=== PATIENT | female | born 1985 | race Caucasian/White ===

== ENCOUNTER 2017-01-02 16:35 | Inpatient (IN) | payer MEDICAID ==
--- NOTE | 2017-01-02 19:26 | ED PDOC ---
HPI: Psych/Substance Abuse Time Seen by Provider: 01/02/17 18:05 Chief Complaint (Nursing): Psychiatric Evaluation Chief Complaint (Provider): Psychiatric Evaluation History Per: Patient History/Exam Limitations: no limitations Suicide/Self Injury Attempted (Context): None Additional Complaint(s): 18:05 Selena Love is a 31 year old female from [place] that presents to the ED with a chief complaint of hearing derogatory voices in her head. Patient states that she has had schizoaffective disorder for many years, and is currently on medication for it. She visits a psychiatrist, with her last visit being two weeks ago. Patient also reports that she has always heard voices in her head, but that over the course of the last week and a half, the voices have become "mean," and that she has been hearing voices more than she normally does. Patient states that she does not want to hurt others or herself, and wanted to go to the hospital last week, but did not go because she wanted to visit her children this week. When visiting her children today in [place], she stated that she "could not take [the voices] anymore," which prompted her to come to the ED. PMD: Katie- in [place] Past Medical History Reviewed: Historical Data, Nursing Documentation, Vital Signs Vital Signs: Last Vital Signs Temp 98.5 F 01/02/17 16:48 Pulse 70 01/02/17 16:48 Resp 20 01/02/17 16:48 BP 125/90 01/02/17 16:48 Pulse Ox 98 01/02/17 16:48 - Medical History PMH: Asthma, Bipolar Disorder, Depression, Schizophrenia, Chronic Pain (Back pain due to pinched nerves) Denies: Chronic Kidney Disease - Surgical History Surgical History: (x 2) - Family History Family History: States: Unknown Family Hx - Home Medications Home Medications: Ambulatory Orders Medication Instructions Recorded RX: traMADol [Ultram] 50 mg PO Q6H 01/16/16 RX: Gabapentin [Neurontin] 400 mg PO HS #30 cap 01/25/16 RX: cloZAPine [Clozaril] 50 mg PO DAILY #15 tab 01/25/16 RX: cloZAPine [Clozaril] 50 mg PO HS #15 tab 01/25/16 RX: cloZAPine [Clozaril] 100 mg PO HS #15 tab 04/15/16 Metaxalone [Skelaxin] 800 mg PO TID PRN #20 tablet 05/07/16 - Allergies Allergies/Adverse Reactions: Allergies Allergy/AdvReac Type Severity Reaction Status Date / Time Sulfa (Sulfonamide Allergy RASH Verified 01/02/17 16:44 Antibiotics) tramadol Allergy RASH Verified 01/02/17 16:44 Review of Systems Psych: Positive for: Other (hearing derogatory voices in her head). Negative for: Suicidal ideation (no SI or HI) Physical Exam - Reviewed Nursing Documentation Reviewed: Yes Vital Signs Reviewed: Yes - Physical Exam Appears: Positive for: Non-toxic, No Acute Distress Head Exam: Positive for: ATRAUMATIC, NORMOCEPHALIC Skin: Positive for: Normal Color, Warm Eye Exam: Positive for: Normal appearance, EOMI ENT: Positive for: Normal ENT Inspection Cardiovascular/Chest: Positive for: Regular Rate, Rhythm. Negative for: Murmur Respiratory: Positive for: Normal Breath Sounds. Negative for: Respiratory Distress Gastrointestinal/Abdominal: Positive for: Soft. Negative for: Tenderness Neurologic/Psych: Positive for: Alert, Oriented, Other (racing, tangential thoughts) - Laboratory Results Result Diagrams: 01/02/17 19:45 - ECG O2 Sat by Pulse Oximetry: 98 (RA) Pulse Ox Interpretation: Normal Medical Decision Making Medical Decision Makin:50 Initial Impression: Psychiatric Evaluation Initial Plan: * Urine Drug Screen * Urine * Crisis Evaluation * EKG * Acetaminophen * Alcohol Serum * CMP * CBC * Drug Screen * Salicylate * Reevaluation 19:42 Patient will be signed out pending medical clearance Clinical Impression: Schizoaffective Disorder Bipolar Type- Dr. Almaraz. Scribe Attestation: Documented by Laura Costa, acting as a scribe for Edgardo Broussard PA-C. Provider Scribe Attestation: All medical record entries made by the Scribe were at my direction and personally dictated by me. I have reviewed the chart and agree that the record accurately reflects my personal performance of the history, physical exam, medical decision making, and the department course for this patient. I have also personally directed, reviewed, and agree with the discharge instructions and disposition. Disposition - Clinical Impression Clinical Impression: Schizoaffective disorder - Patient ED Disposition Is Patient to be Admitted: Transfer of Care Discussed With DrAl: Frederick Almaraz Counseled Patient/Family Regarding: Studies Performed, Diagnosis ( schizoaffective disorder bipolar type) - Disposition Disposition: Transfer of Care Disposition Time: 20:30 Condition: STABLE Patient Signed Over To: Mary Jo Curiel Handoff Comments: pending labs and medical clearance for admission
[2017-01-02 20:04] LABS: BASO # 0.1 K/uL (0.0-0.2); BASO % 0.6 % (0.0-2.0); EOS # 0.1 K/uL (0.0-0.7); EOS % 1.2 % (0.0-4.0); HEMATOCRIT 32.4 % (34.0-47.0); LYMPH # 2.6 K/uL (1.0-4.3); LYMPH % 28.8 % (20.0-40.0); MEAN CELL VOLUME 83.8 fl (81.0-99.0); MEAN CORPUSCULAR HEMOGLOBIN 27.2 pg (27.0-31.0); MEAN CORPUSCULAR HGB CONC 32.4 g/dL (33.0-37.0); MONO # 0.5 K/uL (0.0-0.8); MONO % 5.5 % (0.0-10.0); NEUT # 5.8 K/uL (1.8-7.0); NEUT % 63.9 % (50.0-75.0); RED CELL DISTRIBUTION WIDTH 15.4 % (11.5-14.5); WHITE BLOOD COUNT 9.1 K/uL (4.8-10.8)
[2017-01-02 20:36] LABS: ALB/GLOB RATIO 1.2 (1.0-2.1); ALCOHOL SERUM < 10 mg/dl (0-10); ALKALINE PHOSPHATASE 54 U/L (38-126); ALT/SGPT 30 U/L (9-52); AST/SGOT 34 U/L (14-36); BILIRUBIN,TOTAL 0.2 mg/dl (0.2-1.3); BLOOD UREA NITROGEN 15 mg/dl (7-17); CALCIUM 9.6 mg/dL (8.4-10.2); CARBON DIOXIDE 26 mmol/L (22-30); CHLORIDE 104 mmol/L (98-107); GFR AFRICAN-AMERICAN > 60; GLUCOSE,RANDOM 99 mg/dL (65-105); POTASSIUM 3.8 MMOL/L (3.6-5.0); SODIUM 144 mmol/l (132-148); TOTAL PROTEIN 7.3 G/DL (6.3-8.2)
--- NOTE | 2017-01-02 23:28 | ED PDOC ---
- Laboratory Results Result Diagrams: 01/02/17 19:45 01/02/17 19:45 - ECG O2 Sat by Pulse Oximetry: 98 (RA) Pulse Ox Interpretation: Normal Medical Decision Making Medical Decision Making: Labs normal. CXR normal. Disposition - Clinical Impression Clinical Impression: Schizoaffective disorder - POA Present On Arrival: None - Disposition Disposition: Routine/Home Disposition Time: 23:28 Condition: STABLE
[2017-01-03] MEDS ORDERED: DiphenhydrAMINE 50 mg/ml Inj IM PRN (00:27)
[2017-01-03] MEDS ORDERED: Magnesium Hydroxide Susp 30 ml UD PO PRN (00:27)
[2017-01-03] MEDS ORDERED: Alum-Mag Hydrox-Simethicone Susp (30 mL) PO PRN (00:27)
--- NOTE | 2017-01-03 07:37 | RAD ---
HISTORY: medical evaluation for psychiatric admission COMPARISON: No prior. TECHNIQUE: Chest PA and lateral FINDINGS: LUNGS: No active pulmonary disease. PLEURA: No significant pleural effusion identified. No pneumothorax apparent. CARDIOVASCULAR: Normal. OSSEOUS STRUCTURES: No significant abnormalities. VISUALIZED UPPER ABDOMEN: Normal. OTHER FINDINGS: None. IMPRESSION: No active disease.
[2017-01-03 08:30] LABS: T4 7.79 ug/dl (5.5-11.0)
[2017-01-03 08:43] LABS: THYROID STIMULATING HORMONE 2.48 mIU/ML (0.46-4.68)
--- NOTE | 2017-01-03 10:49 | CARD ---
APPROVED REPORT EKG Measurement Heart [id number] <Conclusion> Sinus rhythm with occasional premature ventricular complexes Otherwise normal ECG
--- NOTE | 2017-01-03 14:07 | CP.PCM.CON ---
History of Present Illness - History of Present Illness History of Present Illness: Reason for consult per protocol HPI: 31 year old female PMH schizoaffective disorder lives in [place], admitted to psych because voices were worsening, and patient "couldn't take it anymore." Patient has no other complaints, vitals stable, no acute distress. ROS: per HPI all other systems reviewed and negative PMH: schizoaffective disorder PSH: none FH: asthma, DM SH: denies tobacco, ETOH, IVDU Meds: as below Allergies: SULFA Vitals: Temp Pulse Resp BP Pulse Ox 97.9 F 71 18 121/80 98 01/03/17 09:00 01/03/17 09:00 01/03/17 09:00 01/03/17 09:00 01/03/17 00:05 Constitutional- cooperative, awake, alert. Head- NCAT, PERRL Eye- PERRL, normal accommodation ENT- normal exam, MMM. Neck- normal inspection, supple, no JVD Respiratory- decreased BS, no wheezes rales rhonchi Cardiovascular- RRR, +S1, +S2 no MRG GI/Abdominal- normal bowel sounds, soft Extremities Exam- normal capillary refill, normal inspection Neurological Exam- alert, oriented Skin- warm and dry Psych - normal mood, affect appropriate 01/02/17 19:45 01/02/17 19:45 Assessment and Plan: Schizoaffective Disorder management per psych Past Patient History - Past Medical History & Family History Past Medical History?: Yes - Past Social History Smoking Status: Light Smoker < 10 Cigarettes Daily - CARDIAC Hx Cardiac Disorders: No Hx Hypertension: No - PULMONARY Hx Asthma: Yes - NEUROLOGICAL Hx Neurological Disorder: No HX Cerebrovascular Accident: No Hx Seizures: No - HEENT Hx HEENT Problems: No - RENAL Hx Chronic Kidney Disease: No - ENDOCRINE/METABOLIC Hx Endocrine Disorders: No - HEMATOLOGICAL/ONCOLOGICAL Hx Blood Disorders: No Hx Cancer: No Hx Human Immunodeficiency Virus (HIV): No - INTEGUMENTARY Hx Dermatological Problems: No - MUSCULOSKELETAL/RHEUMATOLOGICAL Hx Musculoskeletal Disorders: Yes (back pain) Hx Back Pain: Yes - GASTROINTESTINAL Hx Gastrointestinal Disorders: No - GENITOURINARY/GYNECOLOGICAL Hx Genitourinary Disorders: No Hx Sexually Transmitted Disorders: No - PSYCHIATRIC Hx Emotional Abuse: No Hx Physical Abuse: No Hx Schizophrenia: Yes Hx Sexual Abuse: No Hx Substance Use: No - SURGICAL HISTORY Hx Surgeries: Yes Hx Abdominal Aortic Aneurysm Repair: No Hx Section: Yes (x2) - ANESTHESIA Hx Anesthesia: Yes Hx Anesthesia Reactions: No Meds Allergies/Adverse Reactions: Allergies Allergy/AdvReac Type Severity Reaction Status Date / Time Sulfa (Sulfonamide Allergy RASH Verified 01/02/17 16:44 Antibiotics) tramadol Allergy RASH Verified 01/02/17 16:44 - Medications Medications: Current Medications Acetaminophen (Tylenol 325mg Tab) 650 mg PO Q4 PRN PRN Reason: Pain, moderate (4-7) Al Hydrox/Mg Hydrox/Simethicone (Maalox Plus 30 Ml) 30 ml PO Q4 PRN PRN Reason: Dyspepsia Diphenhydramine HCl (Benadryl) 50 mg PO HS PRN PRN Reason: Sleep Diphenhydramine HCl (Benadryl) 50 mg IM Q6 PRN PRN Reason: Extrapyramidal S/S Unable PO Docusate Sodium (Colace) 100 mg PO DAILY [facility] Last Admin: 01/03/17 09:29 Dose: 100 mg Gabapentin (Neurontin) 600 mg PO TID [facility] Last Admin: 01/03/17 09:29 Dose: 600 mg Haloperidol (Haldol) 5 mg PO Q4 PRN PRN Reason: Agitation Haloperidol Lactate (Haldol) 5 mg IM Q4 PRN PRN Reason: Agitation, Unable to Take PO Lorazepam (Ativan) 2 mg PO Q4 PRN PRN Reason: Anxiety/Agitation Lorazepam (Ativan) 2 mg IM Q4 PRN PRN Reason: Anxiety/Agitation,Unable PO Magnesium Hydroxide (Milk Of Magnesia) 30 ml PO HS PRN PRN Reason: Constipation Propranolol HCl (Inderal) 10 mg PO BID [facility] Risperidone (Risperdal Tab) 1 mg PO BID [facility] Risperidone (Risperdal Tab) 2 mg PO HS [facility] Results - Vital Signs Recent Vital Signs: Last Vital Signs Temp 97.9 F 01/03/17 09:00 Pulse 71 01/03/17 09:00 Resp 18 01/03/17 09:00 BP 121/80 01/03/17 09:00 Pulse Ox 98 01/03/17 00:05 - Labs Result Diagrams: 01/02/17 19:45 01/02/17 19:45 Labs: Laboratory Results - last 24 hr 01/03/17 07:00 Triglycerides 91 Cholesterol 157 LDL Cholesterol Direct 67 HDL Cholesterol 52 Thyroxine (T4) 7.79 TSH 3rd Generation 2.48
[2017-01-04 10:02] VITALS: O2SAT 99
--- NOTE | 2017-01-05 00:41 | PCM.PYCHPN ---
Psychiatric Progress Note - Psychiatric Progress Note Patient seen today, length of contact: chart reviewed case discussed with team Patient Chief Complaint: voices increased today after receiving prn haldol, increased seeing of distorted faces Problems Identified/Issues Discussed: auditory hallucinations, commentary visual hallucinations: distorted faces, seeing people's cutting of throats denies desire to harmself or others Medical Problems: per chart Diagnostic Results: per psychiatry per medicine per nursing per social work per recreational therapy DSM 5 Symptoms Update: alteration in cognitive function alteration in thought process Medical Record Reviewed: Yes Mental Status Examination - Cognitive Function Orientation: Person, Place, Situation, Time Attention: WNL Concentration: WNL Association: Loose Fund of Knowledge: Poor Decription of patient's judgement and insights: impaired - Mood Mood: Anxious - Affect Affect: Constricted - Speech Speech: Soft - Formal Thought Process Formal Thought Process: Hallucinations, Delusions, Paranoia - Suicidal Ideation Suicidal Ideation: No - Homicidal Ideation Homicidal Ideation: No Goal/Treatment Plan - Goal/Treatment Plan Need for Continued Stay: Remain at risks for inpatient hospitalization, Discharge may exacerbated symptoms, Failed transitioning, Severe functional impairment Progress Toward Problem(s) and Goals/Treatment Plan: inpt milieu adjust meds per status: stat dose of risperdal stopped as pt received prn dose of haldol and pt was reported increased s/s vital signs and clinical observation per protocol and per clinical status discharge planning in progress Estimated Date of D/C: 01/09/17 - Smoking Cessation Smoking Cessation Initiated: No Reason for not providing: deferrec
--- NOTE | 2017-01-05 13:59 | PCM.PYCHPN ---
Psychiatric Progress Note - Psychiatric Progress Note Patient seen today, length of contact: in treatment team Patient Chief Complaint: i don't know how i should deal with these things Problems Identified/Issues Discussed: pt takes 80 mg latuda at home. she states she has started to have recurrence of her psychotic symptoms- voices, but now with some strange visual halluciantions and worsening of the auditory hallucinations. she reports being more paranoid and anxious. she cannot get latuda here. risperdal is helping somewhat but is not what she is wanting to take. she reports strange visual hallucinations with zyprexa. pt feels urge to isolate in her room. she is motivated to go home. Medication Change: Yes (increase risperdal, start klonopin) Medical Record Reviewed: Yes Mental Status Examination - Cognitive Function Orientation: Person, Place, Situation, Time Memory: Intact Attention: WNL Concentration: WNL Association: Loose Fund of Knowledge: Poor Decription of patient's judgement and insights: fair - Mood Mood: Anxious - Affect Affect: Constricted - Speech Speech: Soft, Pressured - Formal Thought Process Formal Thought Process: Hallucinations, Delusions, Paranoia Psychotic Thoughts and Behaviors: as per hpi - Suicidal Ideation Suicidal Ideation: No - Homicidal Ideation Homicidal Ideation: No Goal/Treatment Plan - Goal/Treatment Plan Need for Continued Stay: Remain at risks for inpatient hospitalization, Discharge may exacerbated symptoms, Failed transitioning, Severe functional impairment Progress Toward Problem(s) and Goals/Treatment Plan: schizoaffective disorder, bipolar type will continue current treatment with increase in risperdal will try to ting concepcion md prescribe latuda to pharmacy here in [place] and start the latuda at 120mg and dc the risperdal add klonopin for anxiety/akathesia replace prn oral haldol with zypresxa/zydis encourage socialization with peers. Estimated Date of D/C: 01/09/17
[2017-01-05] MEDS ORDERED: OLANZapine 5 mg Disintegrating Tab PO PRN (14:02)
--- NOTE | 2017-01-06 11:12 | PCM.PYCHPN ---
Psychiatric Progress Note - Psychiatric Progress Note Patient seen today, length of contact: in treatment team Patient Chief Complaint: i guess these are new symptoms Problems Identified/Issues Discussed: pt denies side effects with risperdal. she is out on milieu socializing today. still c/o auditory hallucinations and having "ability to read what others are going to say next." sleep is improved. no dizziness/sedation with klonopin. Medication Change: No ( ) Medical Record Reviewed: Yes Mental Status Examination - Cognitive Function Orientation: Person, Place, Situation, Time Memory: Intact Attention: WNL Concentration: WNL Association: [facility] Fund of Knowledge: [facility] Decription of patient's judgement and insights: fair - Mood Mood: Anxious - Affect Affect: Broad - Speech Speech: Loud - Formal Thought Process Formal Thought Process: Hallucinations, Delusions, Paranoia - Suicidal Ideation Suicidal Ideation: No - Homicidal Ideation Homicidal Ideation: No Goal/Treatment Plan - Goal/Treatment Plan Need for Continued Stay: Remain at risks for inpatient hospitalization, Discharge may exacerbated symptoms, Failed transitioning, Severe functional impairment Progress Toward Problem(s) and Goals/Treatment Plan: schizoaffective disorder, bipolar type will continue current treatment with risperdal 2mg three times a day continue klonopin for anxiety/akathesia have replaced prn oral haldol with zypresxa/zydis encourage socialization with peers. Estimated Date of D/C: 01/09/17
--- NOTE | 2017-01-07 14:54 | PCM.PYCHPN ---
Psychiatric Progress Note - Psychiatric Progress Note Patient seen today, length of contact: discussed with team Patient Chief Complaint: i feel worse now Problems Identified/Issues Discussed: pt reports feeling pain in her bones now and states it started with risperdal. she reports worsening visual hallucinations and is still very paranoid. she is asking for medication change. she is trying to participate in groups. Medication Change: Yes (dc risperdal) Medical Record Reviewed: Yes Mental Status Examination - Cognitive Function Orientation: Person, Place, Situation, Time Memory: Intact Attention: WNL Concentration: WNL Association: WNL Fund of Knowledge: [facility] Decription of patient's judgement and insights: fair - Mood Mood: Anxious - Affect Affect: Broad - Speech Speech: Loud - Formal Thought Process Formal Thought Process: Hallucinations, Delusions, Paranoia - Suicidal Ideation Suicidal Ideation: No - Homicidal Ideation Homicidal Ideation: No Goal/Treatment Plan - Goal/Treatment Plan Need for Continued Stay: Remain at risks for inpatient hospitalization, Discharge may exacerbated symptoms, Failed transitioning, Severe functional impairment Progress Toward Problem(s) and Goals/Treatment Plan: schizoaffective disorder, bipolar type will dc risperdal and start zyprexa tomorrow 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 Estimated Date of D/C: 01/09/17
[2017-01-07] MEDS: OLANZapine 5 mg Disintegrating Tab PO SCH (21:19)
[2017-01-08] MEDS: OLANZapine 5 mg Disintegrating Tab PO SCH ×2 (08:56→21:41)
--- NOTE | 2017-01-08 10:09 | PCM.PYCHPN ---
Psychiatric Progress Note - Psychiatric Progress Note Patient seen today, length of contact: discussed with team Patient Chief Complaint: i think the zyprexa helps Problems Identified/Issues Discussed: pt reports she feels calmer without feeling sedated. she has had her latuda called in to the pharmacy and we will pick it up today. she is asking for latuda and zyprexa together now. pt is a bit more social with peers. she is still anxious regarding visual hallucinations, reading others thoughts and at times feels uncomfortable around others. Medication Change: Yes (will start latuda tonight 120mg) Medical Record Reviewed: Yes Mental Status Examination - Cognitive Function Orientation: Person, Place, Situation, Time Memory: Intact Attention: WNL Concentration: WNL Association: WNL Fund of Knowledge: WN Decription of patient's judgement and insights: fair - Mood Mood: Anxious - Affect Affect: Broad - Speech Speech: Loud - Formal Thought Process Formal Thought Process: Hallucinations, Delusions, Paranoia Psychotic Thoughts and Behaviors: as above - Suicidal Ideation Suicidal Ideation: No - Homicidal Ideation Homicidal Ideation: No Goal/Treatment Plan - Goal/Treatment Plan Need for Continued Stay: Remain at risks for inpatient hospitalization, Discharge may exacerbated symptoms, Failed transitioning, Severe functional impairment Progress Toward Problem(s) and Goals/Treatment Plan: schizoaffective disorder, bipolar type will add latuda today when obtained from pharmacy and keep latuda and zyprexa will continue to encourage treatment in groups disposition plannng Estimated Date of D/C: 01/09/17 - Smoking Cessation Smoking Cessation Initiated: No Reason for not providing: declines
[2017-01-08] MEDS ORDERED: OLANZapine 5 mg Disintegrating Tab PO SCH (13:00)
[2017-01-09] MEDS: OLANZapine 5 mg Disintegrating Tab PO SCH (08:49)
[2017-01-09 08:50] VITALS: BP 123/80; PULSE 83
[2017-01-09 09:06] VITALS: RESP 18; TEMP 98.1
--- NOTE | 2017-01-09 15:09 | PCM.PYCHDC ---
Mental Status Examination - Mental Status Examination Orientation: Person, Place, Situation, Time Memory: Intact Mood: Neutral Affect: Broad Speech: Appropriate Attention: WNL Concentration: WNL Association: WNL Fund of Knowledge: WNL Formal Thought Process: Hallucinations, Delusions Description of patient's judgement and insight: fair i/j safe and help seeking Psychotic Thoughts and Behaviors: pt reports auditory hallucinations and paranoid thoughts are improved with the increase in zyprexa Suicidal Ideation: No Current Homicidal Ideation?: No Plan: pt denies any suicidal or homicidal thoughts Discharge Summary - Discharge Note Reason for Hospitalization: worsening psychosis Psychiatric History (includes Medical, Family, Personal Hx): history of schizoaffective disorder, symptoms started at age 11 Consultations:: List each consultation separately and include: 1. Reason for request. 2. Findings. 3. Follow-up Consultations: seen by hospitalist Summary of Hospital Course include:: 1. Description of specific treatment plan utilized for patients during their course of treatmen. 2. Summarize the time- course for resolution of acute symptoms and/or regressed behaviors. 3. Describe issues identified and worked on during hospitalization. 4. Describe medication utilized. 5. Describe medical problems identified and treated. 6. Reassessment of suicide risk Summary of Hospital Course: pt was admitted to [facility] and oriented to the unit. she was placed on routine safety protocols. she was started on her home medications. as latuda was not available in this pharmacy, the pt was started on risperdal. she remained with psychotic symptoms- visual hallucinations and paranoid thoughts about peers on the unit. pt had c/o "bone pain" with risperdal and it was replaced with zyprexa. the pt's half-way plan is to increase the latuda lenka 120mg nightly. pt educated that she should take latuda with food. attempt was made to pick u p latuda from an outside pharmacy, but the pt's insurance was not approving the latuda at that dose. as the pt was feeling better with the zyprexa and was no longer with suicidal thoughts and felt safe, she thought it would be more helpful to return home and f/u with her outpatient providers in [place]. pt's plan was to continue zyprexa and have her outpt doctor restart the latuda at a higher dose and reassess need for 2 antipsychotics. pt was goal directed and future oriented and denying any suicidal or homicidal thoughts at time of discharge. pt was social with peers, and was participating in the therapeutic groups while on the unit. - Final Diagnosis (DSM 5) Condition upon Discharge: STABLE DSM 5: schizoaffective disorder, bipolar type Disposition: HOME/ ROUTINE Follow-up Treatment Plan: follow up with outpatient providers as directed take medication as prescribed do not use alcohol, tobacco or other illicit substances call 911 if any suicidal or homicidal thoughts Prescriptions/Medication Reconciliation: clonazePAM [Klonopin] 0.5 mg PO BID #30 tab Lurasidone HCl [Latuda] 120 mg PO HS #30 tablet Olanzapine [Zyprexa] 5 mg PO TID #45 tablet - Smoking Cessation Smoking Cessation Medication prescribed: No - Antipsychotic Medications Pt discharged on 2 or more routine antipsychotic medications: Yes - Justification for 2 or more meds Failed 3 or more trials of Monotherapy: List medications: risperdal, latuda, seroquel, abilify, clozaril Plan to taper monotherapy: List medications: plan to increase latuda and taper off zyprexa
== END 2017-01-09 10:49 | disposition home or self-care (01) | DRG 430 ==
LOC: H.ER 16:35 → H.ERHOLD 23:27 → H.PSYCH 01-03 00:23
PROVIDERS: ADMIT Psychiatry & Neurology Psychiatry; ATTEND Psychiatry & Neurology Psychiatry
DX: F25.0 Schizoaffective disorder, bipolar type (principal); F17.210 Nicotine dependence, cigarettes, uncomplicated; J45.909 Unspecified asthma, uncomplicated; Z88.2 Allergy status to sulfonamides